=== PATIENT | male | born 1990 | race Caucasian/White ===

== ENCOUNTER 2019-08-14 17:36 | Emergency (ER) | payer MEDICAID ==
[~2019-08-14] VITALS: Ht 172.7 cm; Wt 100.5 kg
[2019-08-14] MEDS ORDERED: ONDANSETRON 2MG/ML, 2ML IVPush ONE (18:00)
[2019-08-14] MEDS ORDERED: SODIUM CHLORIDE FLUSH 10ML SYR IVF ONE (18:00)
[2019-08-14] MEDS ORDERED: SODIUM CHLORIDE 0.9% 1,000ML IVBOLUS ONE (18:00)
[2019-08-14] MEDS ORDERED: ONDANSETRON 2MG/ML, 2ML ONE (18:12)
--- NOTE | 2019-08-14 18:34 | NUR ---
PT HAS CO ABDOMINAL PAIN AND NAUSEA/VOMITING. DENIES CP, SOB OR COUGH. IV ESTABLISHED, MEDICATED PER ORDERS. PT NOT IN DISTRESS.
[2019-08-14 18:40] LABS: MEAN CORPUSCULAR HEMOGLOBIN 28.4 pg (27.5-34.5); MEAN CORPUSCULAR HGB CONC 33.3 g/dL (33.2-36.2); MEAN CORPUSCULAR VOLUME 85.2 fL (81-97); MEAN PLATELET VOLUME 8.2 fL (7.4-10.4); PLATELET COUNT 453 x10^3/uL (130-400); RED BLOOD COUNT 5.83 x10^6/uL (4.38-5.82); RED CELL DISTRIBUTION WIDTH 15.4 % (9.4-14.8)
[2019-08-14 18:51] LABS: ALANINE AMINOTRANSFERASE 41 U/L (12-78); ALBUMIN 4.7 g/dL (3.4-5.0); ANION GAP 13 mmol/L (5-15); CALCIUM 9.6 mg/dL (8.5-10.1); CHLORIDE 97 mmol/L (98-107)
[2019-08-14 18:54] LABS: ALKALINE PHOSPHATASE 90 U/L (45-117); TOTAL PROTEIN 9.3 g/dL (6.4-8.2)
--- NOTE | 2019-08-14 18:54 | NUR ---
REPORT TO CAMILO
[2019-08-14] MEDS ORDERED: MORPHINE SULFATE 4 MG/ML, 1ML ONE (18:59)
[2019-08-14 19:00] LABS: BASOPHILS # (AUTO) 0.03 x10^3/uL (0-0.1); BASOPHILS % (AUTO) 0 % (0-1); EOSINOPHILS # (AUTO) 0.07 x10^3/uL (0-0.4); EOSINOPHILS % (AUTO) 1 % (1-7); LYMPHOCYTES # (AUTO) 2.39 x10^3/uL (1-3.4); LYMPHOCYTES % (AUTO) 18 % (22-44); MD SCAN; MONOCYTES # (AUTO) 1.69 x10^3/uL (0.2-0.8); MONOCYTES % (AUTO) 13 % (2-9); NEUTROPHILS % (AUTO) 68 % (42-75)
[2019-08-14] MEDS ORDERED: MORPHINE SULFATE 4 MG/ML, 1ML IVPush PRN (19:00)
--- NOTE | 2019-08-14 19:04 | NUR ---
CARE ASSUMED FROM RENETTA POWERS. PATIENT REPORTS 7/10 UPPER ABDOMINAL PAIN AND IS VISIBLY UNCOMFORTABLE. PATIENT GIVEN IV MORPHINE.
[2019-08-14] MEDS ORDERED: FAMOTIDINE 20 MG/2 ML ONE (19:17)
[2019-08-14] MEDS ORDERED: MAALOX/HYOSCYAMINE/LIDOCAINE 45 ML BTL ONE (19:17)
--- NOTE | 2019-08-14 19:26 | NUR ---
PT GIVEN GI COCKTAIL AND PEPCID. REPORTS PAIN NOW 4/10 AFTER MORPHINE
[2019-08-14] MEDS ORDERED: MAALOX/HYOSCYAMINE/LIDOCAINE 45 ML BTL PO ONE (19:30)
[2019-08-14] MEDS ORDERED: FAMOTIDINE 20 MG/2 ML IVPush ONE (19:30)
[2019-08-14] MEDS ORDERED: SODIUM CHLORIDE 0.9%, 500ML IVBOLUS ONE (19:30)
[2019-08-14 20:19] VITALS: BP 135/89
--- NOTE | 2019-08-14 20:19 | NUR ---
PATIENT KEEPING DOWN WATER WITHOUT DIFFICULTY. HR AND BP IMPROVED. REPORTS PAIN 2/10.
== END 2019-08-14 20:36 | disposition home or self-care (01) ==
LOC: ED 20:30
DX: K52.9 Noninfective gastroenteritis and colitis, unspecified (principal); R10.84 Generalized abdominal pain; R11.2 Nausea with vomiting, unspecified; I10 Essential (primary) hypertension; R00.0 Tachycardia, unspecified
CPT/HCPCS: 36415; 80053; 83690; 85025; 93005; 96361; 96374; 96375; 99284; J2270; J2405; J3490; J7030; J7040